=== PATIENT | male | born 1990 | race African-American/Black ===

== ENCOUNTER 2022-10-09 13:37 | Emergency (ER) | payer SELFPAY ==
--- NOTE | ~2022-10-09 | XR_ITS ---
XR chest 2V DATE: 10/09/2022 14:11 INDICATION: Chest pain radiating to left arm. Diaphoresis. TECHNIQUE: PA and lateral views COMPARISON: None FINDINGS: Normal heart size. No hilar or mediastinal enlargement. The lungs are normally inflated and clear of infiltrate or consolidation. No pleural effusion or pulmonary vascular congestion or pneumo thorax. IMPRESSION: Negative chest Reviewed, dictated and finalized at location B. FACTURING TEACHER IMPRESSION: Negative chest
--- NOTE | 2022-10-09 13:30 | ECG_ITS ---
Measurements Intervals [place] Rate: 94 P: 3 [place]: 159 QRS: 43 QRSD: 114 T: -27 QT: 328 QTc: 411 Interpretive Statements SINUS RHYTHM INTRAVENTRICULAR CONDUCTION DELAY MINIMAL Q WAVES- INFERIOR LEADS BORDERLINE ST-T WAVE ABNORMALITY- INFERIOR LEADS BORDERLINE ECG NO PREVIOUS ECG AVAILABLE FOR COMPARISON Electronically Signed On 10-09-2022 16:02:56 GEOPHYSICAL DATA TECHNICIAN by Adrian Jackson D.O.
[2022-10-09 13:35] VITALS: BP 169/83; PULSE 96; RESP 14; TEMP 36.8; O2SAT 96
--- NOTE | 2022-10-09 13:42 | ED.CHESTPAIN ---
HPI - Chest Pain General Chief Complaint: Chest Pain Stated Complaint: chest pain Time Seen by Provider: 10/09/22 13:41 Source: patient and EMS Mode of arrival: EMS Limitations: no limitations History of Present Illness HPI narrative: 32 years old -French male finished a normal smooth bowel movement and was cleaning up at that time felt sharp weird feeling at the distal left mid axillary line at the diaphragmatic level, lasted for less than 10 seconds. Patient got up, start moving around, and sat down and felt slow, sluggish and start checking his pulse which was running in the 96, subsequently his heart to start beating fast, bounding with numbness of the left upper extremity, diaphoresis and shaking all over. Patient was extremely worried then asked his friend to call the ambulance. Patient was asymptomatic on arrival of the ambulance and on arrival to the emergency room. All the symptoms above started and resolved in less than 10 minutes at rest. Patient trying to lose weight lately, started on Ozempic 8 weeks ago, started working out 3 days ago including lifting, set up and pushing. History of hypertension, occasional smoker occasional drinker and occasional marijuana use. No family history of coronary artery disease. Patient is telling me that he is going through divorce since May 2022 and was tearing at that time Review of Systems Review of Systems: All systems reviewed & are unremarkable except as noted in HPI and below Exam Narrative: General appearance: Well-developed, well-nourished Skin: Normal color Head: Normocephalic, nontraumatic Eyes: Clear conjunctiva ENT: Oropharynx normal, ears normal, nose normal Neck: Supple, nontender Chest and respiratory: Airway patent, no respiratory distress, no accessory muscle use Heart: Regular rate/rhythm Abdomen: Soft, nontender, no organomegaly, quiet bowel sounds Vascular: Normal peripheral pulses, normal capillary refill. 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 tested, no gross motor deficit Course Course Emergency Course: Musculoskeletal pain is my concern Vital Signs Vital signs: Vital Signs Temperature 36.8 C 10/09/22 13:35 Pulse Rate 96 10/09/22 13:35 Respiratory Rate 14 10/09/22 13:35 Blood Pressure 169/83 H 10/09/22 13:35 Pulse Oximetry 96 10/09/22 13:35 Temperature 36.8 C 10/09/22 13:35 Pulse Rate 96 10/09/22 13:35 Respiratory Rate 14 10/09/22 13:35 Blood Pressure 169/83 H 10/09/22 13:35 Pulse Oximetry 96 10/09/22 13:35 MDM - Chest Pain Differential Diagnosis Differential diagnosis: Likely pneumothorax, atypical chest pain, costochondritis, chest pain and other (Anxiety-like symptoms) Lab Data 10/09/22 13:47 10/09/22 13:47 Labs: Lab Results 10/09/22 10/09/22 10/09/22 Range/Units 13:47 13:47 13:47 WBC 9.0 (4.5-10.0) K/mm3 RBC 6.01 (4.6-6.20) M/mm3 Hgb 17.5 (14.0-18.0) g/dL Hct 51.9 (42.0-52.0) % MCV 86.4 (80-100) fl MCH 29.1 (26-34) pg MCHC 33.7 (32-36) g/dl RDW 12.5 (11.5-14.5) % Plt Count 219 (150-375) k/mm3 MPV 10.8 H (7.4-10.4) fl Immature Gran % (Auto) 0.2 (0-0.5) % Neut % (Auto) 63.8 (45.5-73.1) % Lymph % (Auto) 25.7 (18.3-44.2) % [place] % (Auto) 8.3 (2.6-8.5) % Eos % (Auto) 1.6 (0-4.4) % Baso % (Auto) 0.4 (0.2-1.2) % Lymph # (Auto) 2.32 (0.9-3.2) K/mm3 [place] # (Auto) 0.8 H (0.1-0.6) K/mm3 Eos # (Auto) 0.1 (0-0.3) K/mm3 Baso # (Auto) 0.0
[2022-10-09 14:12] LABS: Basophils Percent Auto 0.4 % (0.2-1.2); Eosinophils Absolute Auto 0.1 K/mm3 (0-0.3); Eosinophils Percent Auto 1.6 % (0-4.4); Hematocrit 51.9 % (42.0-52.0); Hemoglobin 17.5 g/dL (14.0-18.0); Immature Granulocyte Absolute 0.02 K/mm3 (0.00-0.031); Immature Granulocyte Percent A 0.2 % (0-0.5); Lymphocytes Absolute Auto 2.32 K/mm3 (0.9-3.2); Lymphocytes Percent Auto 25.7 % (18.3-44.2); Mean Corpuscular HGB Conc 33.7 g/dl (32-36); Mean Corpuscular Hemoglobin 29.1 pg (26-34); Mean Corpuscular Volume 86.4 fl (80-100); Mean Platelet Volume 10.8 fl (7.4-10.4); Monocytes Absolute Auto 0.8 K/mm3 (0.1-0.6); Monocytes Percent Auto 8.3 % (2.6-8.5); Neutrophils Absolute Auto 5.8 K/mm3 (1.3-6.7); Neutrophils Percent Auto 63.8 % (45.5-73.1); Platelet Count Result 219 k/mm3 (150-375); Red Blood Count 6.01 M/mm3 (4.6-6.20); Red Cell Distribution Width 12.5 % (11.5-14.5)
[2022-10-09 14:22] LABS: INR 1.1; Prothrombin Time 13.3 Seconds (11.1-14.7)
[2022-10-09 14:23] LABS: Partial Thromboplastin Time 34.1 SECONDS (22.3-36.8)
[2022-10-09 14:26] LABS: Alanine Aminotransferase 52 U/L (6-50); Albumin Level 4.6 g/dL (3.5-5.1); Alkaline Phosphatase 78 U/L (38-126); Anion Gap 7 mmol/L (8-16); Aspartate Amino Transferase 37 U/L (17-59); Bilirubin,Total 0.8 mg/dL (0.2-1.3); Blood Urea Nitrogen 14 mg/dL (9-20); Calcium 9.1 mg/dL (8.4-10.2); Carbon Dioxide 28 mmol/L (22-30); Chloride 104 mmol/L (98-107); Estimated CRCL calculation 147 ml/min; Estimated Glomerular Filt Rate > 60; Glucose 112 mg/dL (65-110); Lipase 79 U/L (23-300); Potassium 4.6 mmol/L (3.4-5.0); Sodium 139 mmol/L (137-145)
[2022-10-09 14:36] LABS: Troponin I 0.018 ng/mL (0.000-0.034)
[2022-10-09 17:11] LABS: Troponin I < 0.012 ng/mL (0.000-0.034)
--- NOTE | 2022-10-09 17:41 | ECG_ITS ---
Measurements Intervals [place] Rate: 85 P: 5 [place]: 170 QRS: 37 QRSD: 90 T: 5 QT: 329 QTc: 392 Interpretive Statements SINUS RHYTHM BORDERLINE ST-T WAVE ABNORMALITY- INFERIOR LEADS BASELINE WANDER- I, II BORDERLINE ECG COMPARED TO ECG 10/09/2022 13:39:19 NO SIGNIFICANT CHANGES Electronically Signed On 10-09-2022 21:03:53 MARKET STALL VENDOR by Adrian Jackson D.O.
== END 2022-10-09 19:00 | disposition home or self-care (01) ==
PROVIDERS: Emergency Provider Emergency Medicine
DX: R07.89 Other chest pain (principal); I10 Essential (primary) hypertension; F17.200 Nicotine dependence, unspecified, uncomplicated; I45.9 Conduction disorder, unspecified; R94.31 Abnormal electrocardiogram [ECG] [EKG]
CPT/HCPCS: 36415; 71046; 80053; 83690; 84484; 85025; 85610; 85730; 93005; 99284